=== PATIENT | female | born 1995 | race Caucasian/White ===

== ENCOUNTER 2019-02-03 12:19 | Emergency (ER) | payer OTHER ==
[~2019-02-03] VITALS: Ht 157.5 cm; Wt 66.2 kg
[2019-02-03] MEDS ORDERED: PRENATABS RX T1 EACH (12:56)
[2019-02-03] MEDS ORDERED: FOLIC ACID 400 MG (12:58)
== END 2019-02-03 20:03 | disposition home or self-care (01) ==
LOC: ER 12:19
DX: O21.0 Mild hyperemesis gravidarum (principal); Z34.02 Encounter for supervision of normal first pregnancy, second trimester

== ENCOUNTER 2019-05-27 10:30 | Inpatient (IN) | payer OTHER ==
[~2019-05-27] VITALS: Ht 157.5 cm; Wt 71.7 kg
[~2019-05-27 10:30] MED LIST: FOLIC ACID 400 MG; PRENATABS RX T1 EACH
[2019-06-16] MEDS ORDERED: PROFERRIN-FORT1 EACH PO (10:06)
[2019-06-19] MEDS ORDERED: FOLIC ACID0.4 MG (12:00)
== END 2019-06-21 16:15 | disposition home or self-care (01) | DRG 788 ==
LOC: LDR 06-18 06:17 → OB/GYN 06-18 06:17
PROVIDERS: ADMIT Obstetrics & Gynecology
PROC: 4A1HXCZ Monitoring of Products of Conception, Cardiac Rate, External Approach (ICD-10-PCS; 2019-06-18)
PROC: 4A033R1 Measurement of Arterial Saturation, Peripheral, Percutaneous Approach (ICD-10-PCS; 2019-06-18)
PROC: 10D00Z1 Extraction of Products of Conception, Low, Open Approach (ICD-10-PCS; principal; 2019-06-18 19:00)
DX: O33.8 Maternal care for disproportion of other origin (principal); O62.1 Secondary uterine inertia; Z3A.39 39 weeks gestation of pregnancy; Z37.0 Single live birth

== ENCOUNTER 2019-06-16 09:50 | Outpatient (CLI) | payer OTHER ==
[2019-06-16] MEDS ORDERED: PROFERRIN-FORT1 EACH PO (10:06)
== END 2019-06-16 13:36 | disposition home or self-care (01) ==
LOC: OBS/DEL 09:50
DX: O42.02 Full-term premature rupture of membranes, onset of labor within 24 hours of rupture (principal); Z34.83 Encounter for supervision of other normal pregnancy, third trimester; O98.813 Other maternal infectious and parasitic diseases complicating pregnancy, third trimester; B37.3 Candidiasis of vulva and vagina; O35.8XX0 Maternal care for other (suspected) fetal abnormality and damage, not applicable or unspecified

== ENCOUNTER 2019-06-18 00:02 | Outpatient (CLI) | payer OTHER ==
[~2019-06-18 00:02] MED LIST changes: +PROFERRIN-FORT1 EACH PO
[2019-06-19] MEDS ORDERED: FOLIC ACID0.4 MG (12:00)
== END 2019-06-18 06:10 | disposition still patient (30) ==
LOC: OBS/DEL 00:02
DX: O47.1 False labor at or after 37 completed weeks of gestation (principal); Z34.03 Encounter for supervision of normal first pregnancy, third trimester